=== PATIENT | male | born 1960 | race Caucasian/White ===

== ENCOUNTER 2017-09-28 08:12 | Emergency (ER) | payer BC ==
[~2017-09-28 08:12] MED LIST: DOXYCYCLINE 10100 MG PO; EFFEXOR; HCTZ PO
[2017-09-28 08:50] LABS: BASO # 0.1 (0.02-0.10); EOS # 0.1 (0.04-0.40); EOS % 1.4 % (0.0-4.0); HEMATOCRIT 44.9 % (42.0-52.0); HEMOGLOBIN 15.1 g/dL (13.5-18.0); LYMPH# 1.4 (1.50-4.00); MEAN CELL VOLUME 97 fl (78-100); MEAN CORPUSCULAR HEMOGLOBIN 33 pg (27-31); MEAN CORPUSCULAR HGB CONC 34 g/dL (33-37); MEAN PLATELET VOLUME 10.3 fl (7.4-10.4); MONO # 0.7 (0.20-0.80); NEU # 7.2 (1.40-6.50); PLATELET COUNT 286 K/mm3 (130-400); RED BLOOD COUNT 4.65 M/mm3 (4.20-5.60); RED CELL DISTRIBUTION WIDTH 14.1 % (11.5-14.5); WHITE BLOOD COUNT 9.5 K/mm3 (4.8-10.8)
[2017-09-28 09:02] LABS: ALBUMIN 4.1 g/dL (3.5-5.0); BUN/CREATININE RATIO 14.7 (6.0-26.0); CALCIUM 9.2 mg/dL (8.4-10.2); POTASSIUM 4.2 mmol/L (3.6-5.0); TOTAL BILIRUBIN 0.3 mg/dL (0.2-1.3); TOTAL PROTEIN 7.4 g/dL (6.3-8.2)
[2017-09-28 09:58] LABS: PH-URINE 7.5 (5.0 - 8.0); URINE APPEARANCE CLEAR; URINE BILIRUBIN NEGATIVE (NEGATIVE); URINE BLOOD TRACE (NEGATIVE); URINE COLOR YELLOW; URINE GLUCOSE NEGATIVE (NEGATIVE); URINE KETONE NEGATIVE (NEGATIVE); URINE LEUKOCYTE ESTERASE NEGATIVE (NEGATIVE); URINE MUCUS PRESENT (NOT PRESENT); URINE NITRATE NEGATIVE (NEGATIVE); URINE PROTEIN(semi-quant) TRACE mg/dL (NEGATIVE); URINE UROBILINOGEN NORMAL (NORMAL)
[2017-09-28] MEDS ORDERED: VALIUM 2MG T2 MG/TAB PO (10:15)
[2017-09-28 10:30] VITALS: BP 150/90
== END 2017-09-28 10:38 | disposition home or self-care (01) ==
LOC: ED 08:12
PROVIDERS: Nurse Practitioner Primary Care
DX: R42 Dizziness and giddiness (principal); Z87.820 Personal history of traumatic brain injury; Z88.0 Allergy status to penicillin; F17.200 Nicotine dependence, unspecified, uncomplicated; H92.01 Otalgia, right ear

== ENCOUNTER → 2018-06-14 | Outpatient (CLI) | payer BC ==
[~2018-06-14] MED LIST changes: +VALIUM 2MG T2 MG/TAB PO
== END ==
LOC: LAB 08:09
DX: M19.071 Primary osteoarthritis, right ankle and foot (principal); R22.41 Localized swelling, mass and lump, right lower limb

== ENCOUNTER → 2018-09-16 | Outpatient (CLI) | payer BC | LOC: VAS 15:46 → RAD 16:00 | DX: R94.31 Abnormal electrocardiogram [ECG] [EKG] (principal) ==

== ENCOUNTER 2018-09-22 09:30 | Outpatient (RCR) | payer BC | END 2018-09-22 10:00 | disposition still patient (30) | LOC: PT 09:30 | DX: Z47.1 Aftercare following joint replacement surgery (principal); Z96.652 Presence of left artificial knee joint ==

== ENCOUNTER 2018-09-23 09:00 | Outpatient (RCR) | payer BC | END 2018-09-23 09:30 | LOC: OT 09:00 | DX: M19.041 Primary osteoarthritis, right hand (principal) ==

== ENCOUNTER 2018-12-21 16:17 | Emergency (ER) | payer OTHER ==
[~2018-12-21] VITALS: Ht 172.7 cm; Wt 72.7 kg
[2018-12-21 16:40] LABS: BASO # 0.1 (0.02-0.10); EOS # 0.4 (0.04-0.40); EOS % 4.8 % (0.0-4.0); HEMATOCRIT 43.3 % (42.0-52.0); HEMOGLOBIN 14.8 g/dL (13.5-18.0); LYMPH# 1.8 (1.50-4.00); MEAN CELL VOLUME 94 fl (78-100); MEAN CORPUSCULAR HEMOGLOBIN 32 pg (27-31); MEAN CORPUSCULAR HGB CONC 34 g/dL (33-37); MEAN PLATELET VOLUME 8.8 fl (7.4-10.4); MONO # 0.8 (0.20-0.80); NEU # 4.7 (1.40-6.50); PLATELET COUNT 374 K/mm3 (130-400); RED BLOOD COUNT 4.61 M/mm3 (4.20-5.60); RED CELL DISTRIBUTION WIDTH 13.1 % (11.5-14.5); WHITE BLOOD COUNT 7.7 K/mm3 (4.8-10.8)
[2018-12-21] MEDS ORDERED: LISINOPRIL20 MG PO (16:40)
[2018-12-21] MEDS ORDERED: KLONOPIN 0.5MG0.5 MG PO (16:41)
[2018-12-21 16:48] LABS: ALBUMIN 4.3 g/dL (3.5-5.0)
[2018-12-21 16:49] LABS: POTASSIUM 4.6 mmol/L (3.5-5.1); SODIUM 131 mmol/L (136-145)
[2018-12-21 16:50] LABS: CALCIUM 9.8 mg/dL (8.3-10.5)
[2018-12-21 16:51] LABS: GLUCOSE 89 mg/dL (75-110); TOTAL PROTEIN 7.9 g/dL (6.4-8.3)
[2018-12-21 16:52] LABS: CARBON DIOXIDE 19 mmol/L (22-29)
[2018-12-21 16:53] LABS: TOTAL BILIRUBIN 0.6 mg/dL (0.2-1.2)
[2018-12-21 16:56] LABS: AST-SGOT 24 U/L (5-34)
[2018-12-21 16:58] LABS: ALT/SGPT 25 U/L (0-55)
[2018-12-21 17:00] LABS: ACETAMINOPHEN < 1 ug/mL; ALCOHOL IN-HOUSE < 10 mg/dL (<10)
[2018-12-21 18:53] VITALS: BP 157/100
== END 2018-12-21 19:01 | disposition home or self-care (01) ==
LOC: ED 16:17
PROVIDERS: Nurse Practitioner Family
DX: R45.851 Suicidal ideations (principal); I10 Essential (primary) hypertension; F41.9 Anxiety disorder, unspecified; F17.210 Nicotine dependence, cigarettes, uncomplicated; Z90.49 Acquired absence of other specified parts of digestive tract; Z98.890 Other specified postprocedural states

== ENCOUNTER 2019-02-24 08:30 | Outpatient (RCR) | payer BC ==
[~2019-02-24 08:30] MED LIST changes: +KLONOPIN 0.5MG0.5 MG PO; +LISINOPRIL20 MG PO
== END 2019-03-27 | disposition still patient (30) ==
LOC: PT
DX: M25.571 Pain in right ankle and joints of right foot (principal); Z96.661 Presence of right artificial ankle joint

== ENCOUNTER 2019-07-28 08:11 | Emergency (ER) | payer BC ==
[2019-07-28 08:38] LABS: BASO # 0.1 (0.02-0.10); EOS # 0.2 (0.04-0.40); EOS % 2.9 % (0.0-4.0); HEMATOCRIT 37.6 % (42.0-52.0); HEMOGLOBIN 12.6 g/dL (13.5-18.0); LYMPH# 1.6 (1.50-4.00); MEAN CELL VOLUME 95 fl (78-100); MEAN CORPUSCULAR HEMOGLOBIN 32 pg (27-31); MEAN CORPUSCULAR HGB CONC 34 g/dL (33-37); MEAN PLATELET VOLUME 8.6 fl (7.4-10.4); MONO # 0.7 (0.20-0.80); NEU # 3.9 (1.40-6.50); PLATELET COUNT 325 K/mm3 (130-400); RED BLOOD COUNT 3.94 M/mm3 (4.20-5.60); RED CELL DISTRIBUTION WIDTH 12.5 % (11.5-14.5); WHITE BLOOD COUNT 6.5 K/mm3 (4.8-10.8)
[2019-07-28 08:45] LABS: ALBUMIN 3.1 g/dL (3.5-5.0)
[2019-07-28 08:46] LABS: POTASSIUM 3.8 mmol/L (3.5-5.1); SODIUM 127 mmol/L (136-145)
[2019-07-28 08:47] LABS: CALCIUM 7.4 mg/dL (8.3-10.5)
[2019-07-28 08:48] LABS: GLUCOSE 103 mg/dL (75-110); TOTAL PROTEIN 5.3 g/dL (6.4-8.3)
[2019-07-28 08:50] LABS: TOTAL BILIRUBIN 0.3 mg/dL (0.2-1.2)
[2019-07-28 08:51] LABS: ALCOHOL IN-HOUSE 199 mg/dL (<10)
[2019-07-28 08:53] LABS: AST-SGOT 39 U/L (5-34)
[2019-07-28 08:55] LABS: ALT/SGPT 54 U/L (0-55)
[2019-07-28 08:56] LABS: ACETAMINOPHEN < 1 ug/mL; CARBON DIOXIDE 16 mmol/L (22-29)
[2019-07-28 12:58] VITALS: BP 151/85
== END 2019-07-28 12:12 | disposition short-term general hospital (02) ==
LOC: ED 08:11
PROVIDERS: Nurse Practitioner Family
DX: S61.512A Laceration without foreign body of left wrist, initial encounter (principal); F10.129 Alcohol abuse with intoxication, unspecified; I10 Essential (primary) hypertension; F41.9 Anxiety disorder, unspecified; F17.210 Nicotine dependence, cigarettes, uncomplicated; Z23 Encounter for immunization; Z88.0 Allergy status to penicillin; Y90.6 Blood alcohol level of 120-199 mg/100 ml; X78.9XXA Intentional self-harm by unspecified sharp object, initial encounter
CPT/HCPCS: 90715; J3411; J3490; J7030

== ENCOUNTER 2019-09-06 21:03 | Emergency (ER) | payer BC ==
[2019-09-06 21:05] VITALS: BP 189/92
[2019-09-06] MEDS ORDERED: NORVASC 5MG5 MG/TAB PO (21:16)
[2019-09-06] MEDS ORDERED: ZESTRIL10 M1 PO (21:16)
[2019-09-06] MEDS ORDERED: HYDROXYZINE HYD50 M1 PO (21:16)
[2019-09-06] MEDS ORDERED: ZOLOFT 50MG50 MG PO (21:17)
== END 2019-09-06 21:45 | disposition left against medical advice (07) ==
LOC: ED 21:03
DX: F10.129 Alcohol abuse with intoxication, unspecified (principal); F41.9 Anxiety disorder, unspecified; F32.9 Major depressive disorder, single episode, unspecified; F17.210 Nicotine dependence, cigarettes, uncomplicated; Z98.890 Other specified postprocedural states

== ENCOUNTER 2019-10-17 15:33 | Emergency (ER) | payer BC ==
[~2019-10-17 15:33] MED LIST changes: +ARIPIPRAZOLE10 M1 PO; +HYDROXYZINE HYD50 M1 PO; +NALTREXONE HYDR50 MG PO; +NORVASC 5MG5 MG/TAB PO; +ZESTRIL10 M1 PO; +ZOLOFT 50MG50 MG PO
[2019-10-17 15:40] VITALS: BP 127/89
== END 2019-10-17 16:27 | disposition left against medical advice (07) ==
LOC: ED 15:33
DX: F10.129 Alcohol abuse with intoxication, unspecified (principal); F41.9 Anxiety disorder, unspecified; F32.9 Major depressive disorder, single episode, unspecified; F17.210 Nicotine dependence, cigarettes, uncomplicated

== ENCOUNTER → 2022-07-02 | Outpatient (CLI) | payer MEDICARE ==
[2022-07-02 09:29] LABS: BASO # 0.02 K/mm3 (0.02-0.10); EOS # 0.18 K/mm3 (0.04-0.40); EOS % 3.1 % (0.0-4.0); HEMATOCRIT 39.5 % (42.0-52.0); HEMOGLOBIN 13.3 g/dL (13.5-18.0); LYMPH# 2.05 K/mm3 (1.50-4.00); MEAN CELL VOLUME 92 fl (78-100); MEAN CORPUSCULAR HEMOGLOBIN 31 pg (27-31); MEAN CORPUSCULAR HGB CONC 34 g/dL (33-37); MONO # 0.45 K/mm3 (0.20-0.80); NEU # 3.16 K/mm3 (1.40-6.50); PLATELET COUNT 327 K/mm3 (130-400); RED BLOOD COUNT 4.29 M/mm3 (4.20-5.60); RED CELL DISTRIBUTION WIDTH 13.2 % (11.5-14.5); WHITE BLOOD COUNT 5.9 K/mm3 (4.8-10.8)
[2022-07-02 09:35] LABS: ALBUMIN 4.1 g/dL (3.4-4.8); POTASSIUM 4.4 mmol/L (3.5-5.1)
[2022-07-02 09:36] LABS: CALCIUM 9.6 mg/dL (8.3-10.5)
[2022-07-02 09:38] LABS: TOTAL PROTEIN 6.9 g/dL (6.2-8.1)
[2022-07-02 09:40] LABS: TOTAL BILIRUBIN 0.5 mg/dL (0.2-1.2)
[2022-07-03 00:24] LABS: TESTOSTERONE 702 ng/dL (221-716)
== END ==
LOC: LAB 09:01
PROVIDERS: Internal Medicine
DX: S06.8 Other specified intracranial injuries (principal); G47.00 Insomnia, unspecified; F33.2 Major depressive disorder, recurrent severe without psychotic features; R45.851 Suicidal ideations; E78.2 Mixed hyperlipidemia; K90.9 Intestinal malabsorption, unspecified; F52.21 Male erectile disorder; F43.12 Post-traumatic stress disorder, chronic; X58.XXXA Exposure to other specified factors, initial encounter

== ENCOUNTER → 2022-07-24 | Outpatient (CLI) | payer MEDICARE | LOC: RAD 09:13 | DX: I73.9 Peripheral vascular disease, unspecified (principal) ==

== ENCOUNTER 2023-07-29 08:35 | Emergency (ER) | payer MEDICARE ==
[~2023-07-29] VITALS: Ht 172.7 cm; Wt 77.3 kg
[2023-07-29] MEDS ORDERED: LORAZEPAM1 M1 PO (08:43)
[2023-07-29] MEDS ORDERED: PROPRANOLOL HCL60 M3 PO (08:43)
[2023-07-29] MEDS ORDERED: Ketorolac 30 MG/ML VIAL IM ONE (09:30)
[2023-07-29 10:12] LABS: URINE COLOR YELLOW (YELLOW)
[2023-07-29 10:13] LABS: PH-URINE 5.5 (5.0 - 8.0); URINE APPEARANCE CLOUDY (CLEAR); URINE BILIRUBIN 1+ (NEGATIVE); URINE BLOOD 1+ (NEGATIVE); URINE GLUCOSE NEGATIVE (NEGATIVE); URINE KETONE NEGATIVE (NEGATIVE); URINE LEUKOCYTE ESTERASE NEGATIVE (NEGATIVE); URINE NITRATE NEGATIVE (NEGATIVE); URINE PROTEIN(semi-quant) NEGATIVE (NEGATIVE)
[2023-07-29 10:14] LABS: URINE MUCUS PRESENT (NOT PRESENT)
[2023-07-29 10:15] VITALS: BP 181/101
== END 2023-07-29 10:15 | disposition home or self-care (01) ==
LOC: ED 08:35
PROVIDERS: Nurse Practitioner
DX: S20.212A Contusion of left front wall of thorax, initial encounter (principal); R45.1 Restlessness and agitation; F17.200 Nicotine dependence, unspecified, uncomplicated; Z87.820 Personal history of traumatic brain injury; W18.2XXA Fall in (into) shower or empty bathtub, initial encounter; W22.8XXA Striking against or struck by other objects, initial encounter; Y92.002 Bathroom of unspecified non-institutional (private) residence as the place of occurrence of the external cause
CPT/HCPCS: J1885

== ENCOUNTER → 2024-02-17 | Outpatient (CLI) | payer MEDICARE ==
[~2024-02-17] MED LIST changes: +LORAZEPAM1 M1 PO; +PROPRANOLOL HCL60 M3 PO
== END ==
LOC: RAD 07:54
DX: M25.571 Pain in right ankle and joints of right foot (principal); Z98.890 Other specified postprocedural states